=== PATIENT | male | born 1980 | race Caucasian/White ===

== ENCOUNTER 2022-02-09 01:02 | Observation (INO) ==
[2022-02-09] MEDS ORDERED: ALBUTEROL/IPRATROPIUM 3 ML NEB RESP TX STA (01:40)
[2022-02-09] MEDS ORDERED: FUROSEMIDE 100 MG/10 ML VIAL IV STA (01:40)
[2022-02-09] MEDS ORDERED: hydrALAZINE 20 MG/1 ML VIAL IV STA (01:42)
[2022-02-09 02:03] LABS: Basophils % 0.4 % (0.0-0.8); Eosinophils # 0.2 10*3/uL (0.0-0.87); Eosinophils % 2.9 % (0.00-10.9); Hemoglobin 13.1 GM/DL (14.0-18.0); Immature Granulocytes % 0.3 %; Immature Granulocytes Absolute 0.02 #; Lymphocytes # 2.4 10*3/uL (1.4-4.0); Lymphocytes % 34.4 % (21.2-54.2); Mean Corpuscular Volume 89.7 FL (87-102); Mean Platelet Volume 10.7 FL (9.6-12.0); Monocytes # 0.7 10*3/uL (0.11-0.8); Monocytes % 10.6 % (1.7-12.7); Neutrophils % 51.4 % (38.7-73.9); Platelet Count 203 T/CUMM (130-400); Red Blood Count 4.86 MC/CUMM (3.8-5.5); Red Cell Distribution Width 17.7 % (9.3-17.3); White Blood Count 6.9 T/CUMM (4-12)
[2022-02-09 02:07] LABS: Hematocrit 43.6 VOL% (42.0-52.0)
[2022-02-09 02:22] LABS: Albumin 2.7 G/DL (3.4-5.0); Bilirubin,Total 0.9 MG/DL (0.20-1.00); Calcium 8.8 MG/DL (8.5-10.1); Osmolality,Calculated 272.1 MOS/KG (273-304); Potassium 4.9 MMOL/L (3.5-5.1); Total Protein 8.9 G/DL (6.4-8.2)
[2022-02-09 03:11] LABS: Bilirubin,Urine Negative (Negative); Blood, Urine Trace mg/dL (Negative); Glucose,Urine (UA) Negative (Negative); Ketones,Urine Negative (Negative); Nitrite,Urine Negative (Negative); Protein,Urine Negative (Negative); Urine Appearance Clear (Clear); Urine Color Yellow (Yellow); Urine Specific Gravity 1.015 (1.001-1.035); Urine Urobilinogen 0.2 eU/dL (<2.0); Urine pH 5.5 (4.5-8.0)
[2022-02-09 03:13] LABS: Hyaline Casts,Urine 7 /LPF (0-3); Mucus,Urine Occasional /LPF (Occasional); RBC,Urine <1 /HPF (0-4); Squamous Epithelial Cell,Urine Occasional /HPF (0-10)
[2022-02-09] MEDS ORDERED: CLINDAMYCIN INJ 600 MG/50 ML PREMIX IV STA (03:36)
[2022-02-09 03:42] LABS: Barbiturates Screen,Urine Negative (Negative); Benzodiazepines Screen,Urine Negative (Negative); Cannabinoid Screen,Urine Negative (Negative); Opiate Screen,Urine Negative (Negative); Phencyclidine Screen,Urine Negative (Negative)
[2022-02-09] MEDS ORDERED: ALBUTEROL 2.5 MG/3 ML NEB RESP TX PRN (03:43)
[2022-02-09] MEDS ORDERED: SIMETHICONE CHEW 125 MG TABLET PO PRN (03:43)
[2022-02-09] MEDS ORDERED: DEXTROSE 10% 250 ML BAG IV PRN (03:43)
[2022-02-09] MEDS ORDERED: hydrALAZINE 20 MG/1 ML VIAL IV PRN (03:43)
[2022-02-09] MEDS ORDERED: GLUCAGON 1 MG VIAL IM PRN (03:43)
[2022-02-09] MEDS ORDERED: ONDANSETRON 4 MG/2 ML VIAL IV PRN (03:43)
[2022-02-09] MEDS ORDERED: ACETAMINOPHEN 325 MG TABLET PO PRN (03:43)
[2022-02-09 04:34] LABS: Risk Ratio 5.04; Thyroid Stimulating Hormone 2.94 uIU/ml (0.358-3.74); VLDL Cholesterol 21.8 MG/DL
[2022-02-09] MEDS: lisinopriL 10 MG TABLET PO SCH (05:30)
[2022-02-09] MEDS: carvediloL 3.125 MG TABLET PO SCH ×3 (05:30→21:55)
[2022-02-09] MEDS ORDERED: FUROSEMIDE 40 MG/4 ML VIAL IV SCH (08:00)
[2022-02-09] MEDS: ASPIRIN CHEW 81 MG TABLET PO SCH (08:58)
[2022-02-09] MEDS: DOCUSATE SODIUM 100 MG CAPSULE PO SCH ×2 (08:59→21:55)
[2022-02-09] MEDS: PANTOPRAZOLE 40 MG TABLET PO SCH (08:59)
[2022-02-09] MEDS ORDERED: carvediloL 3.125 MG TABLET PO SCH (09:00)
[2022-02-09] MEDS ORDERED: lisinopriL 5 MG TABLET PO SCH (09:00)
[2022-02-09] MEDS: ENOXAPARIN 40 MG/0.4 ML SYRINGE SUBCUT SCH (09:01)
[2022-02-09] MEDS: FUROSEMIDE 40 MG/4 ML VIAL IV SCH ×2 (09:17→17:35)
[2022-02-09] MEDS ORDERED: ATORVASTATIN 80 MG TABLET PO SCH (21:00)
[2022-02-10] MEDS: FUROSEMIDE 40 MG/4 ML VIAL IV SCH ×2 (01:16→11:59)
[2022-02-10 05:28] LABS: Basophils % 0.4 % (0.0-0.8); Eosinophils # 0.2 10*3/uL (0.0-0.87); Eosinophils % 2.2 % (0.00-10.9); Hematocrit 38.2 VOL% (42.0-52.0); Hemoglobin 11.7 GM/DL (14.0-18.0); Immature Granulocytes % 0.1 %; Immature Granulocytes Absolute 0.01 #; Lymphocytes # 1.9 10*3/uL (1.4-4.0); Lymphocytes % 24.6 % (21.2-54.2); Mean Corpuscular HGB Conc 30.6 GM/DL (32-36); Mean Platelet Volume 10.6 FL (9.6-12.0); Monocytes # 0.7 10*3/uL (0.11-0.8); Monocytes % 9.7 % (1.7-12.7); Platelet Count 176 T/CUMM (130-400); Red Blood Count 4.39 MC/CUMM (3.8-5.5); Red Cell Distribution Width 16.8 % (9.3-17.3); White Blood Count 7.6 T/CUMM (4-12)
[2022-02-10 05:43] LABS: Calcium 8.8 MG/DL (8.5-10.1); Osmolality,Calculated 272.1 MOS/KG (273-304); Potassium 3.8 MMOL/L (3.5-5.1)
[2022-02-10 06:17] LABS: Calcium 8.8 MG/DL (8.5-10.1); Potassium 4.1 MMOL/L (3.5-5.1)
[2022-02-10] MEDS ORDERED: MAGNESIUM SULF RIDER 2 GM/50 ML PREMIX IV ONE (08:52)
[2022-02-10] MEDS: carvediloL 3.125 MG TABLET PO SCH (09:43)
[2022-02-10] MEDS: DOCUSATE SODIUM 100 MG CAPSULE PO SCH (09:43)
[2022-02-10] MEDS: lisinopriL 10 MG TABLET PO SCH (09:43)
[2022-02-10] MEDS: ASPIRIN CHEW 81 MG TABLET PO SCH (09:43)
[2022-02-10] MEDS: PANTOPRAZOLE 40 MG TABLET PO SCH (09:43)
[2022-02-10] MEDS: ENOXAPARIN 40 MG/0.4 ML SYRINGE SUBCUT SCH (09:45)
[2022-02-10] MEDS ORDERED: FUROSEMIDE 40 MG/4 ML VIAL IV ONE (12:02)
[2022-02-10 13:35] VITALS: BP 120/85
== END 2022-02-10 16:33 | disposition home or self-care (01) ==
LOC: N.EDINP 01:02 → N.ED 01:02 → SUATTDRO 03:43 → N.TELEN 14:55
PROVIDERS: ADMIT Hospitalist; ATTEND Internal Medicine

== ENCOUNTER 2022-05-15 17:33 | Inpatient (IN) ==
[2022-05-15] MEDS ORDERED: FUROSEMIDE 40 MG/4 ML VIAL IV STA (20:26)
[2022-05-15 20:37] LABS: Basophils % 0.6 % (0.0-0.8); Eosinophils # 0.2 10*3/uL (0.0-0.87); Eosinophils % 3.7 % (0.00-10.9); Hematocrit 43.9 VOL% (42.0-52.0); Hemoglobin 13.6 GM/DL (14.0-18.0); Immature Granulocytes % 0.3 %; Immature Granulocytes Absolute 0.02 #; Lymphocytes # 1.5 10*3/uL (1.4-4.0); Mean Corpuscular Volume 85.7 FL (87-102); Mean Platelet Volume 10.6 FL (9.6-12.0); Monocytes # 0.7 10*3/uL (0.11-0.8); Monocytes % 11.5 % (1.7-12.7); Neutrophils % 59.9 % (38.7-73.9); Platelet Count 164 T/CUMM (130-400); Red Blood Count 5.12 MC/CUMM (3.8-5.5); Red Cell Distribution Width 18.5 % (9.3-17.3); White Blood Count 6.3 T/CUMM (4-12)
[2022-05-15 20:44] LABS: INR 1.2; PT Patient Result 13.4 SECS (10.1-12.1); Partial Thromboplastin Time 29.7 SECS (23.7-32.9)
[2022-05-15 20:49] LABS: Albumin 3.3 G/DL (3.4-5.0); Bilirubin,Total 1.5 MG/DL (0.20-1.00); Calcium 9.4 MG/DL (8.5-10.1); Osmolality,Calculated 270.2 MOS/KG (273-304); Potassium 5.2 MMOL/L (3.5-5.1); Total Protein 9.4 G/DL (6.4-8.2)
[2022-05-15 22:06] LABS: Barbiturates Screen,Urine Negative (Negative); Benzodiazepines Screen,Urine Negative (Negative); Cannabinoid Screen,Urine Positive (Negative); Opiate Screen,Urine Negative (Negative); Phencyclidine Screen,Urine Negative (Negative)
[2022-05-15] MEDS ORDERED: ONDANSETRON 4 MG/2 ML VIAL IV PRN (22:24)
[2022-05-15] MEDS ORDERED: MAGNESIUM SULF RIDER 2 GM/50 ML PREMIX IV PRN (22:24)
[2022-05-15] MEDS ORDERED: ALBUTEROL 2.5 MG/3 ML NEB RESP TX PRN (22:24)
[2022-05-15] MEDS ORDERED: hydrALAZINE 20 MG/1 ML VIAL IV PRN (22:24)
[2022-05-15] MEDS ORDERED: MAGNESIUM SULF RIDER 4 GM/100 ML PREMIX IV PRN (22:24)
[2022-05-15] MEDS ORDERED: ACETAMINOPHEN 325 MG TABLET PO PRN (22:24)
[2022-05-15] MEDS ORDERED: ATORVASTATIN 40 MG TABLET PO SCH (23:00)
[2022-05-15] MEDS ORDERED: carvediloL 3.125 MG TABLET PO SCH (23:00)
[2022-05-16 04:53] LABS: Basophils % 0.5 % (0.0-0.8); Eosinophils # 0.3 10*3/uL (0.0-0.87); Eosinophils % 5.5 % (0.00-10.9); Hematocrit 39.1 VOL% (42.0-52.0); Hemoglobin 12.4 GM/DL (14.0-18.0); Immature Granulocytes % 0.2 %; Immature Granulocytes Absolute 0.01 #; Lymphocytes # 1.3 10*3/uL (1.4-4.0); Lymphocytes % 22.6 % (21.2-54.2); Mean Corpuscular HGB Conc 31.7 GM/DL (32-36); Mean Corpuscular Volume 84.8 FL (87-102); Mean Platelet Volume 10.7 FL (9.6-12.0); Monocytes # 0.7 10*3/uL (0.11-0.8); Monocytes % 12.3 % (1.7-12.7); Neutrophils % 58.9 % (38.7-73.9); Platelet Count 138 T/CUMM (130-400); Red Blood Count 4.61 MC/CUMM (3.8-5.5); Red Cell Distribution Width 18.1 % (9.3-17.3); White Blood Count 5.6 T/CUMM (4-12)
[2022-05-16 05:31] LABS: Osmolality,Calculated 270.2 MOS/KG (273-304); Potassium 4.3 MMOL/L (3.5-5.1); Risk Ratio 4.58; VLDL Cholesterol 15.2 MG/DL
[2022-05-16 05:32] LABS: Albumin 2.9 G/DL (3.4-5.0); Bilirubin,Direct 0.62 MG/DL (0.0-0.20); Bilirubin,Total 1.6 MG/DL (0.20-1.00); Total Protein 8.3 G/DL (6.4-8.2)
[2022-05-16] MEDS: NICOTINE 21 MG/24 HR PATCH TRANSDERM SCH (08:39)
[2022-05-16] MEDS: PANTOPRAZOLE 40 MG TABLET PO SCH (08:40)
[2022-05-16] MEDS: carvediloL 6.25 MG TABLET PO SCH ×2 (08:40→17:23)
[2022-05-16] MEDS: ASPIRIN CHEW 81 MG TABLET PO SCH (08:40)
[2022-05-16] MEDS: DOCUSATE SODIUM 100 MG CAPSULE PO SCH ×2 (08:40→20:16)
[2022-05-16] MEDS ORDERED: SPIRONOLACTONE 25 MG TABLET PO SCH (09:00)
[2022-05-16] MEDS ORDERED: amLODIPine 5 MG TABLET PO SCH (09:00)
[2022-05-16] MEDS ORDERED: FUROSEMIDE 40 MG/4 ML VIAL IV SCH ×2 (09:00)
[2022-05-16] MEDS ORDERED: lisinopriL 10 MG TABLET PO SCH (09:00)
[2022-05-16] MEDS ORDERED: ISOSORBIDE MONONITRATE 30 MG TABLET PO SCH (09:50)
[2022-05-16] MEDS: BENZONATATE 100 MG CAPSULE PO PRN ×2 (14:10→20:15)
[2022-05-16] MEDS ORDERED: hydrALAZINE 25 MG TABLET PO SCH (15:00)
[2022-05-16] MEDS: FUROSEMIDE 40 MG/4 ML VIAL IV SCH (17:23)
[2022-05-16] MEDS: VALSARTAN 80 MG TABLET PO SCH (20:10)
[2022-05-16] MEDS: guaiFENesin/CODEINE 5 ML LIQUID PO PRN (22:23)
[2022-05-17] MEDS: guaiFENesin/CODEINE 5 ML LIQUID PO PRN ×3 (05:53→19:34)
[2022-05-17 06:40] LABS: Basophils % 0.6 % (0.0-0.8); Eosinophils # 0.2 10*3/uL (0.0-0.87); Eosinophils % 4.1 % (0.00-10.9); Hematocrit 38.6 VOL% (42.0-52.0); Hemoglobin 12.6 GM/DL (14.0-18.0); Immature Granulocytes % 0.2 %; Immature Granulocytes Absolute 0.01 #; Lymphocytes # 1.3 10*3/uL (1.4-4.0); Lymphocytes % 25.2 % (21.2-54.2); Mean Corpuscular HGB Conc 32.6 GM/DL (32-36); Mean Corpuscular Volume 83.5 FL (87-102); Mean Platelet Volume 10.9 FL (9.6-12.0); Monocytes # 0.5 10*3/uL (0.11-0.8); Monocytes % 10.4 % (1.7-12.7); Neutrophils % 59.5 % (38.7-73.9); Platelet Count 151 T/CUMM (130-400); Red Blood Count 4.62 MC/CUMM (3.8-5.5); Red Cell Distribution Width 17.9 % (9.3-17.3); White Blood Count 5.1 T/CUMM (4-12)
[2022-05-17 06:57] LABS: Calcium 8.6 MG/DL (8.5-10.1); Osmolality,Calculated 267.5 MOS/KG (273-304); Potassium 4.4 MMOL/L (3.5-5.1)
[2022-05-17] MEDS ORDERED: MAGNESIUM SULF RIDER 4 GM/100 ML PREMIX IV ONE (08:01)
[2022-05-17] MEDS: PANTOPRAZOLE 40 MG TABLET PO SCH (08:35)
[2022-05-17] MEDS: VALSARTAN 80 MG TABLET PO SCH ×2 (08:35→23:15)
[2022-05-17] MEDS: SPIRONOLACTONE 25 MG TABLET PO SCH (08:35)
[2022-05-17] MEDS: DOCUSATE SODIUM 100 MG CAPSULE PO SCH ×2 (08:35→23:15)
[2022-05-17] MEDS: ASPIRIN CHEW 81 MG TABLET PO SCH (08:35)
[2022-05-17] MEDS: FUROSEMIDE 40 MG/4 ML VIAL IV SCH (08:35)
[2022-05-17] MEDS: carvediloL 6.25 MG TABLET PO SCH ×2 (08:35→16:09)
[2022-05-17] MEDS: NICOTINE 21 MG/24 HR PATCH TRANSDERM SCH (08:36)
[2022-05-17] MEDS: BENZONATATE 100 MG CAPSULE PO PRN (12:58)
[2022-05-17] MEDS ORDERED: FUROSEMIDE 40 MG/4 ML VIAL IV ONE (15:25)
[2022-05-18] MEDS: guaiFENesin/CODEINE 5 ML LIQUID PO PRN ×3 (03:19→16:18)
[2022-05-18 05:43] LABS: Basophils % 0.7 % (0.0-0.8); Eosinophils # 0.3 10*3/uL (0.0-0.87); Eosinophils % 4.6 % (0.00-10.9); Hemoglobin 13.6 GM/DL (14.0-18.0); Immature Granulocytes % 0.3 %; Immature Granulocytes Absolute 0.02 #; Lymphocytes # 1.3 10*3/uL (1.4-4.0); Lymphocytes % 22.7 % (21.2-54.2); Mean Corpuscular HGB Conc 32.4 GM/DL (32-36); Mean Corpuscular Volume 82.7 FL (87-102); Mean Platelet Volume 11.1 FL (9.6-12.0); Monocytes # 0.7 10*3/uL (0.11-0.8); Monocytes % 11.3 % (1.7-12.7); Neutrophils % 60.4 % (38.7-73.9); Platelet Count 150 T/CUMM (130-400); Red Blood Count 5.08 MC/CUMM (3.8-5.5); Red Cell Distribution Width 17.8 % (9.3-17.3); White Blood Count 5.9 T/CUMM (4-12)
[2022-05-18 05:59] LABS: Calcium 8.9 MG/DL (8.5-10.1); Osmolality,Calculated 265.8 MOS/KG (273-304); Potassium 4.3 MMOL/L (3.5-5.1)
[2022-05-18] MEDS: carvediloL 6.25 MG TABLET PO SCH ×2 (08:55→16:17)
[2022-05-18] MEDS: SPIRONOLACTONE 25 MG TABLET PO SCH (08:55)
[2022-05-18] MEDS: NICOTINE 21 MG/24 HR PATCH TRANSDERM SCH (08:55)
[2022-05-18] MEDS: ASPIRIN CHEW 81 MG TABLET PO SCH (08:55)
[2022-05-18] MEDS: VALSARTAN 80 MG TABLET PO SCH ×2 (08:55→20:08)
[2022-05-18] MEDS: PANTOPRAZOLE 40 MG TABLET PO SCH (08:56)
[2022-05-18] MEDS: DOCUSATE SODIUM 100 MG CAPSULE PO SCH ×2 (08:56→20:08)
[2022-05-18] MEDS: FUROSEMIDE 40 MG/4 ML VIAL IV SCH ×2 (08:57→16:19)
[2022-05-18] MEDS: LEVOFLOXACIN INJ 500 MG/100 ML PREMIX IV SCH (11:53)
[2022-05-18] MEDS: BENZONATATE 100 MG CAPSULE PO PRN (11:56)
[2022-05-18 13:40] LABS: Hepatitis B Core IgM Quant 0.06 Index; Hepatitis B Surface Ag Quant < 0.10 Index; Hepatitis B Surface Ag Result Non-Reactive (NonReactive); Hepatitis C Virus Ab Quant 0.06 Index; Hepatitis C Virus Ab Result Non-Reactive (NonReactive)
[2022-05-18] MEDS: metFORMIN 500 MG TABLET PO SCH (16:28)
[2022-05-19] MEDS: guaiFENesin/CODEINE 5 ML LIQUID PO PRN ×3 (00:38→22:25)
[2022-05-19 06:02] LABS: Basophils % 0.5 % (0.0-0.8); Eosinophils # 0.3 10*3/uL (0.0-0.87); Eosinophils % 4.4 % (0.00-10.9); Hematocrit 41.1 VOL% (42.0-52.0); Hemoglobin 13.6 GM/DL (14.0-18.0); Immature Granulocytes % 0.3 %; Immature Granulocytes Absolute 0.02 #; Lymphocytes # 1.4 10*3/uL (1.4-4.0); Lymphocytes % 23.3 % (21.2-54.2); Mean Corpuscular HGB Conc 33.1 GM/DL (32-36); Mean Platelet Volume 11.2 FL (9.6-12.0); Monocytes # 0.7 10*3/uL (0.11-0.8); Monocytes % 11.2 % (1.7-12.7); Neutrophils % 60.3 % (38.7-73.9); Platelet Count 149 T/CUMM (130-400); Red Blood Count 4.95 MC/CUMM (3.8-5.5); Red Cell Distribution Width 18.3 % (9.3-17.3); White Blood Count 5.9 T/CUMM (4-12)
[2022-05-19 06:18] LABS: Calcium 8.8 MG/DL (8.5-10.1); Osmolality,Calculated 263.9 MOS/KG (273-304)
[2022-05-19] MEDS: carvediloL 6.25 MG TABLET PO SCH ×2 (08:49→16:13)
[2022-05-19] MEDS: VALSARTAN 80 MG TABLET PO SCH (08:49)
[2022-05-19] MEDS: DOCUSATE SODIUM 100 MG CAPSULE PO SCH ×2 (08:49→20:46)
[2022-05-19] MEDS: FUROSEMIDE 40 MG TABLET PO SCH ×2 (08:49→16:13)
[2022-05-19] MEDS: metFORMIN 500 MG TABLET PO SCH ×2 (08:49→16:13)
[2022-05-19] MEDS: BENZONATATE 100 MG CAPSULE PO PRN (08:49)
[2022-05-19] MEDS: ASPIRIN CHEW 81 MG TABLET PO SCH (08:49)
[2022-05-19] MEDS: NICOTINE 21 MG/24 HR PATCH TRANSDERM SCH (08:50)
[2022-05-19] MEDS: LEVOFLOXACIN INJ 500 MG/100 ML PREMIX IV SCH (08:51)
[2022-05-19] MEDS: PANTOPRAZOLE 40 MG TABLET PO SCH (08:51)
[2022-05-19] MEDS ORDERED: PSEUDOEPHEDRINE 30 MG TABLET PO PRN (11:45)
[2022-05-19] MEDS ORDERED: PSEUDOEPHEDRINE 30 MG TABLET PO ONE (11:47)
[2022-05-19] MEDS: BENZONATATE 100 MG CAPSULE PO SCH ×2 (16:13→20:46)
[2022-05-19] MEDS: hydrALAZINE 25 MG TABLET PO SCH ×2 (20:46→20:52)
[2022-05-19] MEDS: guaiFENesin/DM ER 600-30 MG TABLET PO SCH (20:46)
[2022-05-20 06:45] LABS: Basophils % 0.6 % (0.0-0.8); Eosinophils # 0.2 10*3/uL (0.0-0.87); Eosinophils % 4.1 % (0.00-10.9); Hematocrit 38.3 VOL% (42.0-52.0); Hemoglobin 12.6 GM/DL (14.0-18.0); Immature Granulocytes % 0.4 %; Immature Granulocytes Absolute 0.02 #; Lymphocytes # 1.1 10*3/uL (1.4-4.0); Mean Corpuscular HGB Conc 32.9 GM/DL (32-36); Mean Corpuscular Volume 81.7 FL (87-102); Mean Platelet Volume 11.2 FL (9.6-12.0); Monocytes # 0.6 10*3/uL (0.11-0.8); Monocytes % 11.2 % (1.7-12.7); Neutrophils % 62.7 % (38.7-73.9); Platelet Count 141 T/CUMM (130-400); Red Blood Count 4.69 MC/CUMM (3.8-5.5); Red Cell Distribution Width 17.7 % (9.3-17.3); White Blood Count 5.4 T/CUMM (4-12)
[2022-05-20 07:00] LABS: Calcium 8.7 MG/DL (8.5-10.1); Osmolality,Calculated 268.7 MOS/KG (273-304); Potassium 3.9 MMOL/L (3.5-5.1)
[2022-05-20 07:06] LABS: Albumin 2.9 G/DL (3.4-5.0); Bilirubin,Total 1.4 MG/DL (0.20-1.00); Calcium 8.6 MG/DL (8.5-10.1); Osmolality,Calculated 268.7 MOS/KG (273-304); Total Protein 8.1 G/DL (6.4-8.2)
[2022-05-20] MEDS: LEVOFLOXACIN INJ 500 MG/100 ML PREMIX IV SCH (08:22)
[2022-05-20] MEDS: NICOTINE 21 MG/24 HR PATCH TRANSDERM SCH (08:24)
[2022-05-20] MEDS: BENZONATATE 100 MG CAPSULE PO SCH (08:25)
[2022-05-20] MEDS: guaiFENesin/DM ER 600-30 MG TABLET PO SCH (08:25)
[2022-05-20] MEDS: hydrALAZINE 25 MG TABLET PO SCH (08:25)
[2022-05-20] MEDS: metFORMIN 500 MG TABLET PO SCH (08:25)
[2022-05-20] MEDS: ASPIRIN CHEW 81 MG TABLET PO SCH (08:25)
[2022-05-20] MEDS: PANTOPRAZOLE 40 MG TABLET PO SCH (08:25)
[2022-05-20] MEDS: FUROSEMIDE 40 MG TABLET PO SCH (08:25)
[2022-05-20] MEDS: DOCUSATE SODIUM 100 MG CAPSULE PO SCH (08:25)
[2022-05-20] MEDS: carvediloL 6.25 MG TABLET PO SCH (08:25)
[2022-05-20] MEDS ORDERED: ISOSORBIDE MONONITRATE 30 MG TABLET PO SCH (09:00)
[2022-05-20 09:25] VITALS: BP 101/78
[2022-05-21] MEDS ORDERED: LEVOFLOXACIN 500 MG TABLET PO SCH (09:00)
== END 2022-05-20 12:05 | disposition home or self-care (01) | DRG 291 ==
LOC: N.ED 17:33 → N.EDINP 17:33 → N.2E 05-16 02:32 → SUATTDRO 05-16 09:28
PROVIDERS: ADMIT Internal Medicine; ATTEND Hospitalist